=== PATIENT | male | born 1985 | race Caucasian/White ===

== ENCOUNTER 2022-02-06 08:36 | Day surgery (SDC) | payer BC ==
[2022-02-03 13:32] VITALS: BMI 32.5
[2022-02-06 11:02] VITALS: RESP 18
[2022-02-06 11:27] VITALS: BP 121/77; PULSE 64; TEMP 98
== END 2022-02-06 11:15 | disposition home or self-care (01) ==
LOC: FASU-ENDO 08:36
PROVIDERS: ATTEND Internal Medicine Gastroenterology
PROC: 0DB68ZX Excision of Stomach, Via Natural or Artificial Opening Endoscopic, Diagnostic (ICD-10-PCS; 2022-02-06)
PROC: 0DB48ZX Excision of Esophagogastric Junction, Via Natural or Artificial Opening Endoscopic, Diagnostic (ICD-10-PCS; 2022-02-06)
PROC: 0DB98ZX Excision of Duodenum, Via Natural or Artificial Opening Endoscopic, Diagnostic (ICD-10-PCS; principal; 2022-02-06 10:27)
DX: K29.50 Unspecified chronic gastritis without bleeding (principal); K21.00 Gastro-esophageal reflux disease with esophagitis, without bleeding; B96.81 Helicobacter pylori [H. pylori] as the cause of diseases classified elsewhere; R10.12 Left upper quadrant pain
CPT/HCPCS: 88305-TC; 88341-TC; 88342-TC

== ENCOUNTER 2022-07-03 09:30 | Emergency (ER) | payer BC ==
[2022-07-03 09:38] VITALS: BP 110/72; PULSE 74; RESP 15; TEMP 98.8; BMI 33.6
[2022-07-03] MEDS ORDERED: ACETAMINOPHEN 500 MG TABLET (FP) PO ONE (09:52)
[2022-07-03] MEDS ORDERED: ACETAMINOPHEN 500 MG TABLET (FP) ONE (10:55)
== END 2022-07-03 10:34 | disposition home or self-care (01) ==
LOC: FER 09:30
DX: M25.561 Pain in right knee (principal); Y93.66 Activity, soccer
CPT/HCPCS: 73562-TC-RT-FY; 99283-25

== ENCOUNTER 2022-07-27 11:53 | Emergency (ER) | payer BC ==
[2022-07-27 12:26] VITALS: BP 142/90; PULSE 70; RESP 15; TEMP 98.2; BMI 34.1
[2022-07-27 13:22] LABS: HEMOGLOBIN 17.8 G/dL (11.7-16.9); MCH 31.7 pg (25.7-33.7); MCHC 34.9 g/dl (32.0-35.9); MEAN CELL VOLUME 90.8 fl (80-96); MEAN PLT VOLUME 7.6 fl (7.5-11.1); PLATELET COUNT 304.6 10^3/uL (134-434); RBC 5.62 10^6/uL (4.00-5.60); WHITE BLOOD COUNT 7.2 10^3/uL (4.0-10.8)
[2022-07-27 13:25] LABS: INR 1.07 (0.83-1.09); PROTHROMBIN TIME (PATIENT) 12.3 SEC (9.7-13.0)
[2022-07-27 13:27] LABS: ACTIVATED PTT 41.4 SECONDS (25.2-36.5); ALBUMIN 4.2 g/dl (3.4-5.0); BILIRUBIN,TOTAL 0.5 mg/dl (0.2-1); CALCIUM 9.2 mg/dl (8.5-10); CREATININE 0.8 mg/dl (0.55-1.3); POTASSIUM 3.8 mmol/L (3.5-5.1); TOT PROT 7.8 g/dl (6.4-8.2)
[2022-07-27 13:29] LABS: PLATELET ESTIMATE ADEQUATE
[2022-07-27] MEDS ORDERED: SODIUM CHLORIDE 1,000 ML IV STA (13:56)
[2022-07-27 16:04] LABS: COCAINE, UR NEGATIVE (NEGATIVE); URINE BENZODIAZEPINES NEGATIVE (NEGATIVE)
[2022-07-27 16:05] LABS: OPIATES, URI NEGATIVE (NEGATIVE); PHENCYCLIDINE,URINE NEGATIVE (NEGATIVE); URINE BARBITURATES NEGATIVE (NEGATIVE)
[2022-07-27 16:07] LABS: METHADONE, UR NEGATIVE (NEGATIVE); URINE AMPHETAMINES NEGATIVE (NEGATIVE)
== END 2022-07-27 17:50 | disposition home or self-care (01) ==
LOC: FER 11:53
PROC: 3E0337Z Introduction of Electrolytic and Water Balance Substance into Peripheral Vein, Percutaneous Approach (ICD-10-PCS; principal; 2022-07-27)
DX: S09.90XA Unspecified injury of head, initial encounter (principal); R07.89 Other chest pain; W22.8XXA Striking against or struck by other objects, initial encounter; W27.8XXA Contact with other nonpowered hand tool, initial encounter
CPT/HCPCS: 0241U-QW; 36415; 70450-TC; 71045-TC-FY; 71275-TC; 74174-TC; 80053; 80307; 81003; 83690; 84484; 85025; 85610; 85730; 86850; 86900; 86901; 93005; 99285-25